=== PATIENT | male | born 1940 | race American Indian/Alaskan Native ===

== ENCOUNTER 2016-08-13 09:10 | Outpatient (CLI) | payer MEDICARE ==
--- NOTE | 2016-08-13 12:42 | Fluoroscopy Report ---
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 FINDINGS: Book Packer film of the abdomen is unremarkable. Initial exam demonstrates an area of denuded skin in the umbilicus. The patient reports this is the site of drainage although there has been no recent drainage from this area per the patient. Multiple attempts were made to cannulize the fistulous tract in the umbilical region without success. An 8 Yi rubber catheter was used as well as a 22-gauge IV. No fistulous tract could be detected. IMPRESSION: No fistula could be detected. The patient reports that the drainage in the umbilical region has stopped over the past few days. This may be secondary to medical treatment.
== END 2016-08-13 09:11 | disposition home or self-care (01) ==
LOC: FLUORO 09:10
PROVIDERS: ATTEND Surgery
DX: L08.82 Omphalitis not of newborn (principal)
CPT/HCPCS: 49424; 76080; Q9967